=== PATIENT | female | born 2005 | race Caucasian/White ===

== ENCOUNTER 2023-09-04 12:32 | Inpatient (IN) | payer MEDICAID ==
[~2023-09-04] VITALS: Ht 152.4 cm; Wt 75.2 kg
[2023-09-04] VITALS (21 sets, daily range): BP systolic 116–146; BP diastolic 56–101
[2023-09-04] MEDS ORDERED: MINERAL OIL 30 ML UDC TOP PRN (13:00)
[2023-09-04] MEDS ORDERED: LACTATED RINGERS 1,000 ML 1,000 ML IV SCH (13:00)
[2023-09-04] MEDS ORDERED: TERBUTALINE INJ 1 MG/ML (BRETHINE) AMP SC PRN (13:00)
--- NOTE | 2023-09-04 13:24 | History & Physical-OB ---
OB - Chief Complaint & HPI Date/Time Date of Admission: Date of Admission: Sep 04, 2023 at 12:32 Date seen by a Provider: Sep 04, 2023 Time Seen by a Provider: 11:45 Chief Complaint/History OB-Reason for Admission/Chief: Induction of Labor Hx : 1 Expected Date of Delivery: Sep 02, 2023 Gestational Age in Weeks: 40 Gestational Age in Days: 2 Indication for induction: post dates, other (nonreassuring FHR) Admission Nurse Assessment Rev: Yes History of Labs A+ GBS neg Hep B/C neg HIV neg RPR neg RI Other This 17-year-old G1, P0 presents to labor at 40 weeks 2 days EGA and delivery after being seen in the office for an NST. The NST in the office was nonreactive and being that she was 40 weeks 2 days it was decided to send her over for an induction of labor. We discussed at length the risk benefits and alternatives in detail and the patient had ample opportunity to ask her questions and have them answered to her satisfaction. She verbalized understanding and was agreeable to to proceed. Allergies and Home Medications Allergies Coded Allergies: No Known Drug Allergies (Unverified , 09/04/23) Patient Home Medication List Home Medication List Reviewed: Yes OB - History Hx of Present Care: Yes Ultrasounds: Normal mid trimester US Obstetrical Complications: None Medical Complications: None Information Induced Hypertension: No Maternal Gestational Diabetes: No Hemorrhage: No Obstetrical History Hx : 1 Patient Past Medical History none Immunizations Influenza Vaccine Up-to-Date: No; Not Current OB - Admission Exam Physical Exam HEENT: TMs Normal Heart: Rhythm Normal Lungs: Clear Abdomen: Gravid Extremities: Normal Reflexes: Normal Cervical Dilatation: None Effacement: 25% Station: -3 Membranes: Intact Heart Rate: 140's Accelerations: No Accelerations Decelerations: No Decelerations Short Term Variability: Present Alf Variability: Minimal (3-5) Contractions on Admission: 6-10 Minutes Apart Intensity: Mild Gann Scoring Tool (Modified) Dilation (cm): 0/Closed (0) Effacement (%): 0-30% (0) Descent/Station: -3 (0) Cervix Consistency: Firm (0) Cervix Position: Middle/Mid-Position (1) Subtract 1 point for: Nulliparity (-1) OB - Assessment/Plan/Diagnosis Assessment Assessment: induction of labor Admission Dx IUP @ 40w2d Non-reassuring FHR Admit for IOL Admission Status: Inpatient Order (span 2 midnights) Reason for Inpatient Admission: IUP @ 40w2d Non-reassuring FHR Admit for IOL Plan Plan: Induction Induction Method: per Misoprostol Protocol MASTER BUTT DO Sep 04, 2023 13:24
[2023-09-04] MEDS: LACTATED RINGERS 1,000 ML 500 ML IV PRN ×2 (13:35→13:52)
[2023-09-04] MEDS: D5 LR 1,000 ML IV SOLN 1,000 ML IV SCH ×2 (13:53→23:16)
[2023-09-04 14:18] LABS: BASOPHILS % (AUTO) 0 % (0-10); EOSINOPHILS # (AUTO) 0.1 10^3/uL (0.0-0.3); EOSINOPHILS % (AUTO) 1 % (0-10); HEMATOCRIT 35 % (35-52); LYMPHOCYTES # (AUTO) 1.7 10^3/uL (1.0-4.0); LYMPHOCYTES % (AUTO) 15 % (12-44); MEAN CORPUSCULAR HEMOGLOBIN 26 pg (25-34); MEAN CORPUSCULAR HGB CONC 32 g/dL (32-36); MEAN CORPUSCULAR VOLUME 83 fL (80-99); MEAN PLATELET VOLUME 11.4 fL (9.0-12.2); MONOCYTES # (AUTO) 0.9 10^3/uL (0.0-1.0); MONOCYTES % (AUTO) 8 % (0-12); NEUTROPHILS # (AUTO) 8.9 10^3/uL (1.8-7.8); NEUTROPHILS % (AUTO) 76 % (42-75); PLATELET COUNT 306 10^3/uL (130-400); WHITE BLOOD COUNT 11.7 10^3/uL (4.3-11.0)
[2023-09-04 14:50] LABS: CLARITY,URINE CLEAR; COLOR,URINE YELLOW; PH,URINE 6.5 (5-9)
[2023-09-04 14:51] LABS: BACTERIA,URINE MODERATE /HPF; BILIRUBIN,URINE NEGATIVE (NEGATIVE); GLUCOSE, URINE (UA) NEGATIVE (NEGATIVE); KETONES,URINE NEGATIVE (NEGATIVE); LEUKOCYTE ESTERASE ,URINE NEGATIVE (NEGATIVE); NITRITE,URINE NEGATIVE (NEGATIVE); PROTEIN,URINE NEGATIVE (NEGATIVE)
[2023-09-04] MEDS ORDERED: fentaNYL 2 mcg/ml BUPIVA 0.125 100 ML ONE (22:14)
[2023-09-04] MEDS ORDERED: fentaNYL INJECTION 100 MCG/2 ML VIAL ONE (23:14)
[2023-09-04] MEDS ORDERED: LIDOCAINE PF 2% 5 ML VIAL ONE (23:14)
[2023-09-04] MEDS: fentaNYL 2 mcg/ml BUPIVA 0.125 100 ML EPI SCH (23:16)
[2023-09-04] MEDS ORDERED: NALOXONE 0.4 MG/ML 1 ML VIAL IV PRN (23:30)
[2023-09-04] MEDS ORDERED: LACTATED RINGERS 1,000 ML 1,000 ML IV ONE (23:30)
[2023-09-04] MEDS ORDERED: CATHETER FLUSH 10 ML SYR IV PRN (23:30)
[2023-09-05] VITALS (101 sets, daily range): BP systolic 111–152; BP diastolic 51–686
[2023-09-05] MEDS: D5 LR 1,000 ML IV SOLN 1,000 ML IV SCH ×3 (03:45→19:04)
[2023-09-05] MEDS: fentaNYL 2 mcg/ml BUPIVA 0.125 100 ML EPI SCH ×3 (06:39→21:42)
--- NOTE | 2023-09-05 08:28 | Progress Note ---
Standard Progress Note Progress Notes/Assess & Plan Date Seen by a Provider: Sep 05, 2023 Time Seen by a Provider: 08:15 Progress/Assessment & Plan Patient is resting comfortably in the room. FHR 140s category 1 CVX 1+/75/-3 [place] Q 3 -4 min Plan is to continue Cytotec and then start Pitocin. MASTER BUTT DO Sep 05, 2023 08:28
[2023-09-05] MEDS ORDERED: OXYTOCIN DRIP PRE-MIX 500 ML IV SCH (09:00)
[2023-09-05] MEDS: CATHETER FLUSH 10 ML SYR IV SCH ×2 (14:00→22:00)
[2023-09-06] VITALS (37 sets, daily range): BP systolic 112–152; BP diastolic 64–91
[2023-09-06] MEDS: D5 LR 1,000 ML IV SOLN 1,000 ML IV SCH (02:46)
[2023-09-06] MEDS: fentaNYL 2 mcg/ml BUPIVA 0.125 100 ML EPI SCH (05:05)
[2023-09-06] MEDS ORDERED: CITRIC ACID/SODIUM CITRATE ORAL SOLN 30 ML ONE (05:48)
[2023-09-06] MEDS ORDERED: METOCLOPRAMIDE INJ 10 MG/2 ML ONE (05:49)
[2023-09-06] MEDS ORDERED: FAMOTIDINE INJ 20MG/2ML VIAL ONE (05:49)
[2023-09-06] MEDS ORDERED: METOCLOPRAMIDE INJ 10 MG/2 ML IV ONE (06:30)
[2023-09-06] MEDS ORDERED: CITRIC ACID/SODIUM CITRATE ORAL SOLN 30 ML PO ONE (06:30)
[2023-09-06] MEDS ORDERED: FAMOTIDINE INJ 20MG/2ML VIAL IV ONE (06:30)
[2023-09-06] MEDS ORDERED: LACTATED RINGERS 1,000 ML 1,000 ML IV PRN ×2 (06:30)
[2023-09-06] MEDS ORDERED: ceFAZolin INJECTION 2,000 MG ONE (06:41)
[2023-09-06] MEDS ORDERED: NS (IVPB) 50 ML 50 ML ONE (06:42)
[2023-09-06] MEDS ORDERED: ceFAZolin INJECTION 2,000 MG in NS (IVPB) 50 ML 50 ML IV ONE (06:45)
--- NOTE | 2023-09-06 06:45 | Progress Note ---
Standard Progress Note Progress Notes/Assess & Plan Date Seen by a Provider: Sep 06, 2023 Time Seen by a Provider: 06:30 Progress/Assessment & Plan Patient has made little to no progress in cervical dilatation she got to about 3 cm. This morning she had a deceleration that lasted about 4 minutes. It did return to baseline however Pitocin has been off since that time. We discussed with the patient and together decided that we should proceed to a repeat low-transverse section. We discussed the risk benefits and alternatives including the risks of infection bleeding injury to pelvic and abdominal organs, scar tissue, VTE, anesthesia risks and . We also discussed the benefits of taking the baby out and and decreasing the risks of hypoxia to the baby with section versus vaginal at this point. The patient had all of her questions answered to her satisfaction verbalized understanding and signed consents and is ready to proceed. FHR 140s CAT 1 CVX 3 cm [place]'s Q 4-7min MASTER BUTT DO Sep 06, 2023 06:45
[2023-09-06] MEDS: CATHETER FLUSH 10 ML SYR IV SCH (06:49)
[2023-09-06] MEDS ORDERED: BUPIVACAINE 0.5% 30 ML VIAL ONE (06:57)
[2023-09-06] MEDS ORDERED: fentaNYL INJECTION 100 MCG/2 ML VIAL ONE (06:57)
[2023-09-06] MEDS ORDERED: LIDOCAINE PF 2% 5 ML VIAL ONE ×2 (06:57→07:20)
[2023-09-06] MEDS ORDERED: OXYTOCIN DRIP PRE-MIX 1,000 ML IV ONE (07:02)
--- NOTE | 2023-09-06 07:11 | Cesarean Section Operative ---
Procedure Procedure Note Pre-operative Diagnosis: IUP at 40 weeks 4 days intolerance to labor failure to progress/dilate Post-operative Diagnosis: same + Liveborn male Procedure: [] low transverse section Physician: MASTER BUTT Waste Treatment Operator:Paris Mai MD Estimated blood loss: 1000 mL Disposition: Counts correct x 3 patient taken to recovery room in stable condition Findings: Liveborn male at 07 51 on 09/06/2023 with Apgars of 7/9 weight 8 pounds 6 ounces. Normal-appearing and intact placenta normal-appearing uterus tubes and ovaries as well as uterine atony Indications:Lilly James 17-year-old G1, P0 who presented at 40 weeks 2 days for induction of labor secondary to nonreassuring heart rate pattern in the office. Because she was already postdates it was decided to proceed to an induction of labor. We had discussed the risk benefits and alternatives in detail which the patient had ample opportunity to ask her questions and have t hem answered to her satisfaction. She was admitted to labor and delivery when Cytotec was started. Her initial cervical exam was closed/thick/high. Fetus was in a vertex presentation. She was given Cytotec and then started on Pitocin when she was 1 cm in the morning on 09/05/2023. She continued to progress until she was about 3 cm. Her membranes were ruptured she was internalized Pitocin was increased to maintain adequate uterine contractions she did not continue to dilate and the head developed a And heart tone started to have decelerations at about 4:00 this morning. It was decided that we should proceed to a primary low-transverse section. Again we discussed the risk benefits and alternatives in detail with the patient she verbalized understanding, had her questions answered to her satisfaction and elected to proceed. Procedure Details: Informed consent was obtained and signed patient was taken to the OR suite placed in the dorsal supine position with the left lateral tilt bolused with her epidural anesthesia prepped and draped usual sterile fashion. A timeout was performed. Anesthesia was confirmed using an Allis clamp and a Pfannenstiel skin incision was made carried down to the fascia the fascia was nicked and incised bilaterally reflected off the rectus abdominis muscle both superiorly and inferiorly the rectus abdominis muscle was in the midline and the peritoneum was entered into bluntly and extended bilaterally. An Dieudonne self- retaining retractor was then placed into the abdominal cavity. This allowed exposure of the lower uterine segment which a low transverse uterine incision was made and extended bilaterally. The head was delivered atraumatically there is noted to be a nuchal cord x 2 which was loose and reduced the posterior shoulder delivered 5 by the anterior shoulder followed by the rest the . The was placed on the field and dried off and after 45 seconds the cord was clamped and then cut. The was placed into the nurses care underneath the warmer. A section of cord was saved for potential blood gas. Cord bloods were obtained. The placenta was spontaneously removed and was noted to be intact with a three-vessel cord. The uterus tubes and ovaries were then exteriorized and cleared of all clot and debris. It was noted that the uterus was very floppy and we noted to anesthesia that we were dealing with the uterine atony. In addition to her bolused Pitocin we gave 10 units of Pitocin into the uterus, 1 g of TXA IV, Methergine 0.2 mg IM and Hemabate 0.2 mg IM. During this time we were continuously massaging the uterus and because we did not have a lot of bleeding we went ahead and decided to reapproximate the uterine incision which was done with 0 Vicryl in a running interlocking fashion and then imbricated using 0 Vicryl in a running fashion. We continue to inspect the uterus and after 5 to 10 minutes the uterus became firm. The incision was inspected was noted to be hemostatic. The uterus tubes and ovaries were placed back inside the abdominal cavity and the abdominal cavity was irrigated with normal saline solution. The incision was inspected once more was noted to be hemostatic Interceed was placed over the incision site. The peritoneum was then reapproximated using 0 Vicryl in running fashion and the rectus abdominis muscle was reapproximated using 0 Vicryl in a running fashion. The fascia was reapproximated using 1 Vicryl in running fashion and the skin was reapproximate using 3-0 Monocryl in a subcuticular fashion and then sealed with Dermabond. The estimated blood loss was approximately 1000 cc fluids were 1200 cc and urine output was 250 cc irrigation was 700 cc. All my counts were correct x 3 the patient was taken to recovery room in stable condition. Vitals - Labs Vital Signs - I&O Vital Signs Date Time Temp Pulse Resp B/P (MAP) Pulse Ox O2 Delivery O2 Flow Rate FiO2 09/06/23 06:00 103 18 125/65 (85) 97 Room Air 09/06/23 05:45 110 18 133/84 (100) 95 Room Air 09/06/23 05:30 36.7 105 18 129/65 (86) 97 Room Air 09/06/23 05:15 103 18 137/65 (89) 96 Room Air 09/06/23 05:00 116 18 152/81 (104) 98 Room Air 09/06/23 04:45 105 18 129/77 (94) 96 Room Air 09/06/23 04:30 116 18 142/85 (104) 97 Room Air 09/06/23 04:15 37.2 115 18 132/82 (99) 97 Room Air 09/06/23 04:00 96 18 131/74 (93) 99 Room Air 09/06/23 03:45 95 18 129/65 (86) 97 Room Air 09/06/23 03:30 98 18 132/77 (95) 96 Room Air 09/06/23 03:15 118 18 112/65 (81) 96 Room Air 09/06/23 03:00 36.0 96 18 119/69 (86) 99 Room Air 09/06/23 02:45 102 18 122/66 (84) 99 Room Air 09/06/23 02:30 99 18 123/69 (87) 97 Room Air 09/06/23 02:15 92 18 135/72 (93) 97 Room Air 09/06/23 02:00 94 18 126/64 (84) 96 Room Air 09/06/23 01:45 93 18 129/72 (91) 96 Room Air 09/06/23 01:30 97 18 135/76 (95) 96 Room Air 09/06/23 01:15 97 18 124/76 (92) 96 Room Air 09/06/23 01:00 36.6 90 18 132/77 (95) 96 Room Air 09/06/23 00:45 93 18 124/71 (88) 98 Room Air 09/06/23 00:30 100 18 124/73 (90) Room Air 09/06/23 00:15 93 18 124/73 (90) Room Air 09/06/23 00:00 93 18 117/66 (83) Room Air 09/05/23 23:45 94 18 118/62 (80) Room Air 09/05/23 23:30 99 18 129/69 (89) Room Air 09/05/23 23:15 106 18 126/68 (87) Room Air 09/05/23 23:10 111 18 119/66 (83) Room Air 09/05/23 23:05 96 18 125/69 (87) Room Air 09/05/23 23:00 36.0 96 18 125/70 (88) Room Air 09/05/23 22:55 107 18 125/70 (88) Room Air 09/05/23 22:50 100 18 127/73 (91) Room Air 09/05/23 22:45 93 18 129/65 (86) Room Air 09/05/23 22:40 99 18 132/71 (91) Room Air 09/05/23 22:30 94 18 120/68 (85) Room Air 09/05/23 22:15 36.4 98 18 112/73 (86) Room Air 09/05/23 22:00 98 18 112/73 (86) Room Air 09/05/23 21:45 99 18 118/70 (86) 98 Room Air 09/05/23 21:30 96 18 117/73 (88) Room Air 09/05/23 21:15 102 18 128/78 (95) Room Air 09/05/23 21:00 36.6 99 18 130/78 (95) Room Air 09/05/23 20:45 106 18 132/82 (99) Room Air 09/05/23 20:30 104 18 131/80 (97) Room Air 09/05/23 20:15 109 18 134/82 (99) Room Air 09/05/23 20:10 105 18 133/84 (100) Room Air 09/05/23 20:05 100 18 124/85 (98) Room Air 09/05/23 20:00 110 18 129/84 (99) Room Air 09/05/23 19:55 99 18 123/76 (92) Room Air 09/05/23 19:50 100 18 128/82 (97) Room Air 09/05/23 19:45 101 18 130/87 (101) Room Air 09/05/23 19:40 36.4 97 18 142/83 (102) 99 Room Air 09/05/23 19:30 99 18 130/80 (97) Room Air 09/05/23 19:15 104 18 131/80 (97) Room Air 09/05/23 19:00 102 132/77 (95) Room Air 09/05/23 18:45 120 138/80 (99) Room Air 09/05/23 18:30 117 127/87 (100) Room Air 09/05/23 18:15 116 128/84 (99) Room Air 09/05/23 18:00 101 134/79 (97) Room Air 09/05/23 17:45 97 125/68 (87) Room Air 09/05/23 17:30 103 123/72 (89) Room Air 09/05/23 17:15 100 118/56 (76) Room Air 09/05/23 17:00 110 128/72 (90) Room Air 09/05/23 16:45 108 20 122/65 (84) Room Air 09/05/23 16:30 111 121/74 (90) Room Air 09/05/23 16:15 108 123/74 (90) Room Air 09/05/23 16:00 112 124/79 (94) Room Air 09/05/23 15:45 103 123/70 (87) Room Air 09/05/23 15:30 104 121/72 (88) Room Air 09/05/23 15:15 104 125/68 (87) Room Air 09/05/23 15:00 107 131/71 (91) Room Air 09/05/23 14:45 110 18 127/73 (91) Room Air 09/05/23 14:30 113 125/77 (93) Room Air 09/05/23 14:15 102 127/65 (85) Room Air 09/05/23 14:00 108 129/66 (87) Room Air 09/05/23 13:45 108 118/60 (79) Room Air 09/05/23 13:30 109 18 121/66 (84) Room Air 09/05/23 13:15 116 119/59 (79) Room Air 09/05/23 12:45 109 119/51 (73) Room Air 09/05/23 12:30 113 18 121/68 (85) Room Air 09/05/23 12:15 111 132/58 (82) Room Air 09/05/23 12:00 106 116/63 (80) Room Air 09/05/23 12:00 108 121/67 (85) Room Air 09/05/23 11:30 102 18 128/72 (90) Room Air 09/05/23 11:15 111 131/69 (89) Room Air 09/05/23 11:00 104 134/74 (94) Room Air 09/05/23 10:45 103 137/70 (92) Room Air 09/05/23 10:30 104 133/68 (89) Room Air 09/05/23 10:15 105 132/86 (101) Room Air 09/05/23 10:00 103 117/68 (84) Room Air 09/05/23 09:45 109 119/75 (90) Room Air 09/05/23 09:30 101 18 135/80 (98) Room Air 09/05/23 09:15 105 132/74 (93) Room Air 09/05/23 09:00 100 129/69 (89) Room Air 09/05/23 08:45 105 123/76 (92) Room Air 09/05/23 08:30 103 111/67 (82) Room Air 09/05/23 08:00 100 120/68 (85) Room Air 09/05/23 07:30 92 18 111/59 (76) Room Air I & O 09/06/23 07:00 Intake Total 1800 ml Output Total 5000 ml Balance -3200 ml MASTER BUTT DO Sep 06, 2023 07:11
--- NOTE | 2023-09-06 07:13 | Discharge Summary ---
MASTER BUTT DO 09/06/23 0713: Discharge Summary Hospital Course Problems Reviewed?: Yes Hospital Course Date of Admission: Sep 04, 2023 at 12:32 Admission Diagnosis : Family Physician/Provider: No,Local Physician Date of Discharge: 09/06/23 Discharge Diagnosis: Status post primary low-transverse section Hospital Course: [ ] Labs and Pending Lab Test: Patient Discharge Instructions Follow-up in 1 week for an incision check. Follow-up in 6 weeks for check Activity: Activity as Tolerated Driving Instructions: No Driving for 1 Week NO SMOKING: NO SMOKING Nothing Inside Vagina: No Douching, No Momence, No Tampons Discharge Diet: Regular Diet Symptoms to Report to : Pain Increased, Constipation(Persistant), Fever Over 101 Degrees F, Vaginal Bleeding Increase, Vaginal Discharge Foul, Nausea/Vo miting, Shortness of Breath For Any Problems or Questions: Go to Emergency Room Infection Signs and Symptoms: Increased Redness, Foul Odor of Wound, Increased Drainage, Skin Itchy or Has a Rash, Increased Swelling, Temperature Above 101 F Operative Area Clean and Dry: Keep Incision Clean/Dry Stitches/[place]/Dermabond: Dermabond Discharge Physical Examination Allergies: Coded Allergies: No Known Drug Allergies (Unverified , 09/04/23) Vitals & I&Os Vital Signs Date Time Temp Pulse Resp B/P (MAP) Pulse Ox O2 Delivery O2 Flow Rate FiO2 09/06/23 06:00 103 18 125/65 (85) 97 Room Air 09/06/23 05:30 36.7 Discharge Summary Date of Admission Sep 04, 2023 at 12:32 Date of Discharge Supervisory-Addendum Brief Verification & Attestation Participated in pt care: history, MDM, physical Personally performed: exam, history, MDM, supervision of care Care discussed with: Medical Student Procedures: n/a Results interpretation: Verified all documentation I personally saw and examined this patient CAR HORTON DO 09/08/23 0650: Discharge Summary Hospital Course Problems/Diagnosis: (1) S/P Status: Resolved Resolution Date/Time: 09/08/23 @ 06:48 (2) INDUCTION OF LABOR 40+ WEEKS Onset Date: ~ 09/2023 Discharge Physical Examination Allergies: Coded Allergies: No Known Drug Allergies (Unverified , 09/04/23) General Appearance: No Apparent Distress Respiratory: No Respiratory Distress Gastrointestinal: Non Tender, Soft Extremity: Non Tender, No Calf Tenderness Neurologic/Psychiatric: Alert, Normal Mood/Affect MASTER BUTT DO Sep 06, 2023 07:13 CAR HORTON DO Sep 08, 2023 06:50
[2023-09-06] MEDS ORDERED: MEASLES, MUMPS, RUBELLA VACCINE (MMR) SC SCH (07:15)
[2023-09-06] MEDS ORDERED: morphine INJ 4 MG/ML 1 ML (VIAL/SYRINGE) IV PRN (07:15)
[2023-09-06] MEDS ORDERED: NALOXONE 0.4 MG/ML 1 ML VIAL IV PRN (07:15)
[2023-09-06] MEDS ORDERED: Tetanus/Diphtheria/Pertussis (Acell) ADULT Vaccine 0.5 ML IM SCH (07:15)
[2023-09-06] MEDS ORDERED: OXYTOCIN DRIP PRE-MIX 500 ML IV SCH (07:15)
[2023-09-06] MEDS ORDERED: METHYLERGONOVINE INJ 0.2 MG/ML AMP ONE (07:55)
[2023-09-06] MEDS ORDERED: OXYTOCIN INJECTION 10 UNIT/ML VIAL ONE (07:55)
[2023-09-06] MEDS ORDERED: TRANEXAMIC ACID 100 MG/ML 10 ML INJECTION ONE (07:55)
[2023-09-06] MEDS ORDERED: MIDAZOLAM INJ 2 MG/2 ML VIAL ONE (07:57)
[2023-09-06] MEDS ORDERED: CARBOPROST 250 MCG/ML 1 ML AMPULE IM ONE (08:01)
[2023-09-06] MEDS ORDERED: KETAMINE 50 MG/5 ML SYRINGE ONE (08:06)
[2023-09-06] MEDS ORDERED: proPOfol INJECTION 200 MG/20 ML VIAL IV ONE (08:12)
[2023-09-06] MEDS: KETOROLAC INJ 15 MG/ML VIAL IV SCH ×3 (09:29→21:42)
[2023-09-06] MEDS: HYDROcodone/ACETAMINOPHEN 5 MG/325 MG TABLET PO PRN (12:25)
[2023-09-06] MEDS ORDERED: CATHETER FLUSH 10 ML SYR IV SCH (14:00)
[2023-09-06] MEDS: DOCUSATE SODIUM 100 MG CAPSULE PO SCH (20:34)
[2023-09-07 00:10] VITALS: BP 131/87
[2023-09-07 04:00] VITALS: BP 125/80
[2023-09-07] MEDS: KETOROLAC INJ 15 MG/ML VIAL IV SCH (04:01)
[2023-09-07 06:25] LABS: BASOPHILS # (AUTO) 0.1 10^3/uL (0.0-0.1); BASOPHILS % (AUTO) 0 % (0-10); EOSINOPHILS % (AUTO) 0 % (0-10); HEMATOCRIT 25 % (35-52); HEMOGLOBIN 7.9 g/dL (11.5-16.0); LYMPHOCYTES # (AUTO) 1.5 10^3/uL (1.0-4.0); LYMPHOCYTES % (AUTO) 8 % (12-44); MEAN CORPUSCULAR HEMOGLOBIN 25 pg (25-34); MEAN CORPUSCULAR HGB CONC 32 g/dL (32-36); MEAN CORPUSCULAR VOLUME 80 fL (80-99); MEAN PLATELET VOLUME 11.5 fL (9.0-12.2); MONOCYTES # (AUTO) 1.2 10^3/uL (0.0-1.0); MONOCYTES % (AUTO) 7 % (0-12); NEUTROPHILS # (AUTO) 15.1 10^3/uL (1.8-7.8); NEUTROPHILS % (AUTO) 84 % (42-75); PLATELET COUNT 260 10^3/uL (130-400)
[2023-09-07 08:45] VITALS: BP 118/79
--- NOTE | 2023-09-07 09:17 | Postpartum Progress Note ---
Note Note Day # 1 Subjective: Patient is without complaints. Ambulating, voiding. Tolerating a regular diet without nausea or vomiting. Normal lochia. Pain is well controlled with oral pain medications. Objective: [] Physical Exam: General - Alert and oriented, no apparent distress Abdomen - Soft, appropriately tender to palpation, non-distended, fundus firm at umbilicus Extremities - no edema Assessment: Post op day 1 Recovering well, hemodynamically stable Rh pos Plan: Routine care. Encourage breast feeding. Encourage ambulation. Ferrous sulfate supplementation. Vitals - Labs Vital Signs - I&O Vital Signs Date Time Temp Pulse Resp B/P (MAP) Pulse Ox O2 Delivery O2 Flow Rate FiO2 09/07/23 04:00 36.9 112 18 125/80 (95) 99 Room Air 09/07/23 00:10 37.0 109 18 131/87 (102) 98 Room Air 09/06/23 20:35 36.8 110 18 131/83 (99) 97 Room Air 09/06/23 16:15 36.9 102 18 120/74 (89) 96 Room Air 09/06/23 12:00 37.0 95 18 136/82 (100) 97 Room Air 09/06/23 09:33 Room Air 09/06/23 09:33 37.2 16 126/89 (101) 97 Room Air I & O 09/07/23 06:59 Intake Total 5000 ml Output Total 2550 ml Balance 2450 ml Labs Laboratory Tests 09/07/23 05:56: White Blood Count 18.0H, Red Blood Count 3.13L, Hemoglobin 7.9#L, Hematocrit 25L , Mean Corpuscular Volume 80, Mean Corpuscular Hemoglobin 25, Mean Corpuscular Hemoglobin Concent 32, Red Cell Distribution Width 14.9H, Platelet Count 260, Mean Platelet Volume 11.5, Immature Granulocyte % (Auto) 1, Neutrophils (%) (Auto) 84H, Lymphocytes (%) (Auto) 8L, Monocytes (%) (Auto) 7, Eosinophils (%) (Auto) 0, Basophils (%) (Auto) 0, Neutrophils # (Auto) 15.1H, Lymphocytes # (Auto) 1.5, Monocytes # (Auto) 1.2H, Eosinophils # (Auto) 0.0, Basophils # (Auto) 0.1, Immature Granulocyte # (Auto) 0.1 CAR HORTON DO Sep 07, 2023 09:17
--- NOTE | 2023-09-07 09:41 | Anesthesia-Regional Post-Op ---
Regional Patient Condition Mental Status: Alert, Oriented x3 Circulation: Same as Pre-Op Headache: Absent Sensation: Full Recovery Motor Block: Absent Post Op Complications Complications None Follow Up Care/Instructions Patient Instructions None needed. Anesthesia/Patient Condition Patient is doing well, no complaints, stable vital signs, no apparent adverse anesthesia problems. No complications reported per nursing. ETIENNE SHAW DO Sep 07, 2023 09:41
[2023-09-07] MEDS: IBUPROFEN 600 MG TABLET PO SCH ×3 (10:24→22:29)
[2023-09-07] MEDS: DOCUSATE SODIUM 100 MG CAPSULE PO SCH ×2 (10:24→22:29)
[2023-09-07] MEDS: HYDROcodone/ACETAMINOPHEN 5 MG/325 MG TABLET PO PRN (13:34)
[2023-09-07 16:28] VITALS: BP 119/87
[2023-09-08 00:40] VITALS: BP 135/83
[2023-09-08] MEDS: IBUPROFEN 600 MG TABLET PO SCH ×2 (03:33→10:00)
[2023-09-08 05:24] VITALS: BP 124/79
[2023-09-08] MEDS ORDERED: IBUP-1780 PO (06:46)
[2023-09-08] MEDS ORDERED: DOCU100C37 PO (06:46)
[2023-09-08] MEDS ORDERED: ACHD5005 PO (06:46)
[2023-09-08] MEDS: DOCUSATE SODIUM 100 MG CAPSULE PO SCH (10:00)
[2023-09-08 10:02] VITALS: BP 122/86
== END 2023-09-08 11:25 | disposition home or self-care (01) | DRG 787 ==
LOC: LDRP 12:32
PROVIDERS: ADMIT Obstetrics & Gynecology; ATTEND Obstetrics & Gynecology
PROC: 3E0DXGC Introduction of Other Therapeutic Substance into Mouth and Pharynx, External Approach (ICD-10-PCS; 2023-09-04)
PROC: 3E033VJ Introduction of Other Hormone into Peripheral Vein, Percutaneous Approach (ICD-10-PCS; 2023-09-04)
PROC: 10D00Z1 Extraction of Products of Conception, Low, Open Approach (ICD-10-PCS; principal; 2023-09-06 07:33)
DX: O48.0 Post-term pregnancy (principal); O99.324 Drug use complicating childbirth; O76 Abnormality in fetal heart rate and rhythm complicating labor and delivery; Z3A.40 40 weeks gestation of pregnancy; Z37.0 Single live birth; O62.1 Secondary uterine inertia; F12.90 Cannabis use, unspecified, uncomplicated
CPT/HCPCS: 36415; 81000; 85025; 86780; 86850; 86900; 86901; 94664